=== PATIENT | female | born 1940 | race Caucasian/White ===

== ENCOUNTER 2018-04-15 11:06 | Inpatient (IN) ==
--- NOTE | 2018-04-15 11:22 | Emergency Department Note ---
Disposition Clinical Impression: Left arm weakness Disposition: Admitted As Inpatient Referrals: Al Crowley MD [Primary Care Provider] - General Adult HPI - General Stated complaint: possible stroke Time Seen by Provider: 04/15/18 11:09 Past Medical History - Past Medical History Medical history: Reports: osteoporosis Surgical history: Reports: non-contributory - Social History Smoking Status: Unknown if ever smoked Attestation Statement - Attestation Attestation: I examined this patient and my medical decision-making was reviewed with the Resident Physician. I agree with the documented findings, disposition and treatment plan as described except to the extent set forth below. 77 year old female prsnet to the ED with complaints of left arm numbness and weakness that started 0800 this morning and resolved and then started again at 0900 this morning which has now resolved. and her NIH is at a 0. Maria M states she was given 2 baby aSA per squad but otherwise does not take ASA. Maria M states that she doesnot have a histroy of afib or stroke or MIs. Maria M does have risk factors for ACS and CVa. STROKE ALERT called, HCT without bleed. She does have diffuse t wave inversion on EKG althouhg she is not expeirning chest pain or pressure or discomfort. WE will admit
[2018-04-15 11:27] LABS: Basophils % 0.3 %; Eosinophils # 0.1 K/mcL (0.0-0.6); Eosinophils % 1.1 %; Hematocrit 40.9 % (35.3-44.9); Immature Granulocytes % 0.3 % (0-4); Lymphocytes # 1.4 K/mcL (0.6-4.6); Mean Corpuscular HGB Conc 34.2 g/dL (31.6-35.5); Mean Corpuscular Hemoglobin 30.2 pg (28.0-33.3); Mean Corpuscular Volume 88.3 fL (83.0-100.0); Mean Platelet Volume 9.5 fL (9.4-12.4); Monocytes # 0.5 K/mcL (0.0-1.3); Monocytes % 8.4 %; Neutrophils # 4.1 K/mcL (1.6-8.9); Platelet Count 246 K/mcL (140-400); Red Blood Count 4.63 M/mcL (3.82-4.97); Red Cell Distribution Width 11.9 % (11.5-14.5); Segmented Neutrophils % 66.9 %
--- NOTE | 2018-04-15 11:27 | Emergency Department Note ---
Disposition Clinical Impression: Left arm weakness Disposition: Admitted As Inpatient Referrals: Al Crowley MD [Primary Care Provider] - Neuro HPI - General Stated Complaint: possible stroke Time Seen by Provider: 04/15/18 11:09 Source: patient Limitations: no limitations - History of Present Illness HPI Narrative: 69-year-old female presents from [facility] via EMS for evaluation of acute neuro deficits. Patient was awake and getting ready for [facility] at 08:00 this morning experienced abrupt onset left upper lower extremity numbness with mild weakness. This resolved after 3-4 minutes. At [facility], at 09:00, patient Stout left upper extremity numbness, changes in her vision described as imagery rolling/scanning vertically past her. She was sitting and was unable to get up due to weakness. EMS was called for transport. Based on EMS story, code stroke was called prior to patient's arrival. Patient was given 2 aspirin by family prior to EMS arrival on scene. She was also nauseous and dry heaves in route. Patient was taken from ambulance pain doors directly to CT where I started my evaluation. Currently, patient feels a symptomatic. 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 No history of herniated dysrhythmia, CVA, TIA. - Related Data Allergies/Adverse Reactions: Allergies Allergy/AdvReac Type Severity Reaction Status Date / Time Amoxicillin Allergy Rash Verified 04/15/18 11:17 All systems ED: reviewed and negative except as stated. Review of Systems: As Per HPI Past Medical History - Past Medical History Medical history: Reports: osteoporosis Surgical history: Reports: non-contributory Psychiatric history: Reports: no psych history - Social History Smoking Status: Unknown if ever smoked Alcohol use: Reports: none Drug use: Reports: none Physical Exam Vital Signs Reviewed General: Patient is alert, oriented, and in no acute distress. Head: atraumatic, normocephalic Eye: normal appearance, PERRL, EOMI, no scleral icterus, no conjunctival injection. ENT: mucous membranes moist, normal external ear exam Neck: normal inspection, trachea midline, full ROM Chest: normal inspection, symmetric chest rise Respiratory: Good respiratory effort. Bilateral breath sounds are clear without wheezing, crackles, or rhonchi. Cardiovascular: Regular rate and rhythm. No clicks, rubs, gallops, or murmors. Normal heart sounds. Abdomen: Bowel sounds present normoactive x-4 quadrants. Abdomen is soft, nondistended, and nontender. No guarding or rebound. No organomegaly noted. Musculoskeletal: Spontaneously moving all extremities. Skin: warm, dry, intact. Neuro: Alert and oriented x4. Sensation light touch intact and equal bilaterally in upper and lower extremity is. No pronator drifts. Negative finger-nose. No slurring of speech. She is answering all questions appropriately and briskly. No facial asymmetry. No visual field losses. Psych: Patient's affect is appropriate for situation. - General Limitations: no limitations General appearance: alert, in no apparent distress Course Course Narrative: 11:32 Dr. Louie Ang, [facility]. CT head noncon shows some ischemic white matter changes. Encephalomalacia in left posterior occiput from prior events. No hemorrhage. 11:35 [facility] neurologist, Dr. Mosher. Not a TPa candidate given resolution of symptoms. Recommends TPa workup. We will keep at this facility for continued evaluation. 11:45 [facility] neurology, Dr. Venegas. Discussed with him the patient's past medical history, present time light of symptoms, CT head findings. He agrees for a mission to this facility for TIA workup. Will give aspirin. Patient's EKG does show diffuse T-wave inversions that are new from EKG 6 years ago. She has had no chest pain today. Awaiting lab results and will call cardiology. EKG dated 15 April 2018 at 11:25 interpreted as sinus rhythm with rate of 78. DE 163, QRS 70, QTC 434. Normal axis. Diffuse T-wave inversion. Nonspecific ST changes. Compared to previous EKG dated 11/30/2011 which shows these T-wave inversions are new. Vital Signs Temperature 98.3 F 04/15/18 11:17 Pulse Rate 72 04/15/18 11:17 Respiratory Rate 18 04/15/18 11:17 Blood Pressure 187/105 04/15/18 11:17 O2 Sat by Pulse Oximetry 96 04/15/18 11:17 Temperature 98.3 F 07/08/18 11:17 Pulse Rate 75 04/15/18 11:25 Respiratory Rate 16 04/15/18 11:25 Blood Pressure 200/96 04/15/18 11:25 O2 Sat by Pulse Oximetry 97 04/15/18 11:28 Oxygen Delivery Oxygen Delivery Room Air Neuro Symptoms/Deficit - Lab Data Result diagrams: 04/15/18 11:14 Lab Results 04/15/18 04/15/18 Range/Units 11:14 11:14 WBC 6.2 (4.3-11.1) K/mcL RBC 4.63 (3.82-4.97) M/mcL Hgb 14.0 (11.5-15.4) g/dL Hct 40.9 (35.3-44.9) % MCV 88.3 (83.0-100.0) fL MCH 30.2 (28.0-33.3) pg MCHC 34.2 (31.6-35.5) g/dL RDW 11.9 (11.5-14.5) % Plt Count 246 (140-400) K/mcL MPV 9.5 (9.4-12.4) fL Immature Gran % 0.3 (0-4) % Seg Neutrophils % 66.9 % Lymphocytes % 23.0 % Monocytes % 8.4 % Eosinophils % 1.1 % Basophils % 0.3 % Neutrophils # 4.1 (1.6-8.9) K/mcL Lymphocytes # 1.4 (0.6-4.6) K/mcL Monocytes # 0.5 (0.0-1.3) K/mcL Eosinophils # 0.1 (0.0-0.6) K/mcL Basophils # 0.0 (0.0-0.2) K/mcL Specimen Rejected Hemolyzed NIH Stroke Scale - Level of Consciousness LOC: Alert - LOC Questions LOC Questions: Answers both correctly - LOC Commands LOC Commands: Performs both correctly - Best Gaze Best Gaze: Normal - Visual Visual: No visual loss - Facial Palsy Facial Palsy: Normal - Motor Arms Motor Arm-Left: No drift for 10 seconds Motor Arm-Right: No drift for 10 seconds - Motor Legs Motor Leg-Left: No drift for 5 seconds Motor Leg-Right: No drift for 5 seconds - Limb Ataxia Limb Ataxia: Normal, No Ataxia - Sensory Sensory: Normal - Best Language Best Language: No aphasia - Dysarthria Dysarthria: Normal - Extinction and Inattention Extinction and Inattention: Normal - NIHSS Total Score NIHSS Total Score: 0 TPA Checklist - Source Information Source: Patient - Eligibilty for IV tPA 1. LKW equal to or less than 4.5 hours be before treatment: Yes 3. Age 18 years or older: Yes - LKW: 3-4.5 hrs Add. Warnings/Precautions Patient/family understanding: The patient/family members have been counseled and understood the risk, benefit , and alternatives of treatment.
[2018-04-15 11:42] LABS: INR 1.1; Prothrombin Time 12.4 Seconds (9.4-12.1)
[2018-04-15] MEDS ORDERED: Aspirin 81 MG TAB.CHEW PO ONE (11:42)
[2018-04-15 11:44] LABS: Activated Partial Thrombo Time 31.9 Seconds (26.0-36.0)
[2018-04-15 12:12] LABS: BUN/Creatinine Ratio 14 (6-26); Blood Urea Nitrogen 11 mg/dL (8-23); Calcium 9.4 mg/dL (8.6-10.3); Carbon Dioxide 26 mEq/L (23-29); Chloride 104 mEq/L (98-107); Glucose 133 mg/dL (70-105); Osmolality,Calculated 285 (280-300); Potassium 4.2 mEq/L (3.5-5.1); Sodium 137 mEq/L (136-145); eGFR For African Americans > 60 (> 60); eGFR For Non-African Americans > 60 (> 60)
[2018-04-15] MEDS ORDERED: *HR* Labetalol 100 MG/20 ML MDV IVP ONE (12:30)
--- NOTE | 2018-04-15 16:49 | Internal Med History&Physical ---
Date of Encounter: 04/18/18 Time of Encounter: 02:30 Internal Medicine - H&P: HPI Chief complaint: left side head, upper and lower extremity weakness History of present illness: Ms. Soriano is a 77 year old female with a history of hypertension. She presented to the ED by EMS yesterday with chief complaint of left side head, upper and lower extremity weakness, paresthesia, and vertigo, dizziness, and vomiting. Past Med Surg Social Fam HX - Past Medical History Medical history: osteoporosis Additional medical history: Pagets Disease of the skull Psychiatric history: no psych history - Past Surgical History Surgical History: cholecystectomy, hysterectomy - Social History Smoking Status: Former smoker Smokeless Tobacco Status: No Alcohol use: none Drug use: none Internal Medicine - H&P: Meds Latanoprost [Xalatan] 1 drop OP HS 04/15/18 [History] Lisinopril [Zestril] 20 mg PO DAILY 04/15/18 [History] Magnesium Oxide [Mgo] 800 mg PO DAILY 04/15/18 [History] Metoprolol Succinate [Toprol Xl] 25 mg PO DAILY 04/15/18 [History] Atorvastatin [Lipitor] 80 mg PO HS #30 tablet 04/18/18 [Rx] Clopidogrel [Plavix] 75 mg PO DAILY #30 tablet 04/18/18 [Rx] 3 Allergy/AdvReac Type Severity Reaction Status Date / Time Amoxicillin Allergy Rash Verified 04/15/18 11:17 All Systems PM: A 10-system review of systems was performed and is negative for pertinent findings except as documented above in the HPI. - Constitutional Constitutional: no chills, no fever(s), no night sweats - Cardiovascular Cardiovascular ROS IM: no chest pain, no diaphoresis, no dyspnea, no lightheadedness, no palpitations, no syncope - Respiratory Respiratory: no cough, no dyspnea, no wheezing, no excessive phlegm production - Gastrointestinal Gastrointestinal: no abdominal pain, no diarrhea, no hematemesis, no hematochezia, no melena, no nausea, no vomiting - Neurological Neurological ROS: paresthesias, weakness, no confusion, no convulsions, no focal weakness, no numbness, no tingling, no tremor(s) - Constitutional Vitals: Temp Pulse Resp BP Pulse Ox 98.6 F 78 16 168/80 97 04/15/18 16:02 04/15/18 16:02 04/15/18 16:02 04/15/18 16:02 04/15/18 15:36 General appearance: Present: A&O X 3 - Head Head exam: Present: atraumatic, normocephalic - Neck Neck exam general surgery: Present: supple, trachea midline. Absent: lymphadenopathy - Respiratory Respiratory exam: Present: CTAB. Absent: accessory muscle use, rales, rhonchi, wheezes - Cardiovascular Cardiovascular exam: Present: RRR, +S1, +S2. Absent: diastolic murmur, gallop, rubs, systolic murmur - Extremities Exam Extremities exam: Present: warm, radial pulses palpable and symmetrical. Absent : calf tenderness, cyanotic, pedal edema - Neurological Exam Neurological exam: Present: CN II-XII intact, oriented X3, no focal deficits. Absent: pronater drift, facial droop, speech deficit Internal Med - H&P Results - Labs CBC & Chem 7: 04/16/18 04:33 04/16/18 04:33 - Assessment and plan (1) Left arm weakness Current Visit: Yes Status: Resolved Assessment and plan: ASSESSMENT: *TIA PLAN: -ASA -UA -Tylenol 650 mg PO q 4-6 hr PRN headache -Neuro consult (2) Age related osteoporosis Current Visit: Yes Status: Chronic Qualifiers: Presence of current pathological fracture: without current pathological fracture Qualified Code(s): M81.0 - Age-related osteoporosis without current pathological fracture (3) DVT prophylaxis Current Visit: Yes Status: Acute - Time Spent With Patient Total time spent is greater than 50% in coordination of care (as documented) at patient's floor/unit and/or counseling patient:
[2018-04-15] MEDS ORDERED: Acetaminophen 325 MG TABLET PO PRN (17:17)
[2018-04-15] MEDS ORDERED: Ondansetron 4 MG/2 ML VIAL IVP PRN (17:17)
[2018-04-15] MEDS ORDERED: *HR* HYDROcodone/Acet 5/325 mg TABLET PO PRN (17:17)
[2018-04-15] MEDS ORDERED: *HR* OxyCODONE Immed Rel 5 MG TABLET PO PRN (17:17)
[2018-04-15] MEDS ORDERED: Naloxone 0.4 MG/ML INJ IVP PRN (17:17)
[2018-04-15 20:47] LABS: Bilirubin,Urine Negative (Negative); Blood,Urine Negative (Negative); Clarity,Urine Clear (Clear); Color,Urine Yellow (Yellow); Glucose,Urine (UA) Normal (Normal); Ketones,Urine 15 mg/dL (Negative); Leukocyte Esterase,Urine Negative (Negative); Nitrite,Urine Negative (Negative); Protein,Urine Negative (Neg-Trace); Specific Gravity,Urine 1.012 (1.010-1.025); Urobilinogen,Urine Normal (Normal)
[2018-04-16 05:07] LABS: Hematocrit 37.3 % (35.3-44.9); Hemoglobin 12.6 g/dL (11.5-15.4); Mean Corpuscular HGB Conc 33.8 g/dL (31.6-35.5); Mean Corpuscular Hemoglobin 30.1 pg (28.0-33.3); Mean Platelet Volume 9.9 fL (9.4-12.4); Platelet Count 243 K/mcL (140-400); Red Blood Count 4.19 M/mcL (3.82-4.97); Red Cell Distribution Width 12.1 % (11.5-14.5)
[2018-04-16 05:16] LABS: INR 1.1; Prothrombin Time 12.5 Seconds (9.4-12.1)
[2018-04-16 05:18] LABS: Activated Partial Thrombo Time 32.7 Seconds (26.0-36.0)
[2018-04-16 05:33] LABS: Alanine Aminotransferase 22 Units/L (7-52); Albumin 3.7 g/dL (3.5-5.7); Albumin/Globulin Ratio 1.5 (1.1-2.2); Alkaline Phosphatase 76 Units/L (34-104); Aspartate Amino Transferase 15 Units/L (13-39); BUN/Creatinine Ratio 19 (6-26); Bilirubin,Total 0.6 mg/dL (0.3-1.0); Blood Urea Nitrogen 15 mg/dL (8-23); Calcium 8.9 mg/dL (8.6-10.3); Carbon Dioxide 26 mEq/L (23-29); Chloride 107 mEq/L (98-107); Globulin 2.4 g/dL (2.4-3.5); Glucose 100 mg/dL (70-105); Magnesium 2.2 mg/dL (1.6-2.6); Osmolality,Calculated 293 (280-300); Phosphorous 3.5 mg/dL (2.7-4.5); Potassium 3.9 mEq/L (3.5-5.1); Sodium 141 mEq/L (136-145); Total Protein 6.1 g/dL (6.4-8.9); eGFR For African Americans > 60 (> 60); eGFR For Non-African Americans > 60 (> 60)
--- NOTE | 2018-04-16 10:57 | Neurology - Consult Note ---
<Dustin Hammond R - Last Filed: 04/16/18 15:29> Date of Encounter: 04/16/18 Time of Encounter: 10:55 Assessment and Plan (1) Acute CVA (cerebrovascular accident) Current Visit: Yes Status: Acute MRI reveals multiple right side acute and subacute infarcts, likely embolic in nature. Recommend head and neck CTA in evaluation of embolism source. Patient should remain on plavix and aspirin. History of Present Illness HPI: Ms. Soriano is a 77 year old female with a history of hypertension. She presented to the ED by EMS yesterday with chief complaint of left side head, upper and lower extremity weakness, paresthesia, and vertigo, dizziness, and vomiting. Symptoms began yesterday at 0800, and would come and go for two and a half hours until 1030 am, when she last noticed the symptoms. Today she feels back to normal, does not feel weak or dizziness, denies headache. Has been able to ambulate the halls well without support. Denies previous occurrence. Past Med Surg Social Fam HX - Past Medical History Medical history: osteoporosis Additional medical history: Pagets Disease of the skull Psychiatric history: no psych history - Past Surgical History Surgical History: cholecystectomy, hysterectomy - Social History Smoking Status: Former smoker Smokeless Tobacco Status: No Alcohol use: none Drug use: none Medications and Allergies Latanoprost [Xalatan] 1 drop OP HS 04/15/18 [History] Lisinopril [Zestril] 20 mg PO DAILY 04/15/18 [History] Magnesium Oxide [Mgo] 800 mg PO DAILY 04/15/18 [History] Metoprolol Succinate [Toprol Xl] 25 mg PO DAILY 04/15/18 [History] 3 Allergy/AdvReac Type Severity Reaction Status Date / Time Amoxicillin Allergy Rash Verified 04/15/18 11:17 All Systems: The remainder of the systems were reviewed and are negative Review of Systems: Decreased hearing in the left ear, chronic and at baseline Physical Examination - Vital Signs Vital Signs: Initial Vital Signs Temp Pulse Resp BP Pulse Ox 98.3 F 72 18 187/105 96 04/15/18 11:17 04/15/18 11:17 04/15/18 11:17 04/15/18 11:17 04/15/18 11:17 - Exam Exam: Mental Status: patient is awake, alert and oriented to person, place, and time. Speech and fund of knowledge are appropriate. Cranial Nerves: CN II-XII intact bilaterally, pupils equal, round, and reactive to light. Patient has known left sided hearing loss. Upper extremity motor: normal tone and 5/5 strength in bilateral deltoid, biceps , triceps, finger extensors and abductors Lower extremity motor: normal muscle tone 5/5 strength in hip flexors, quadriceps, hamstrings, plantar flexors and extensors Sensory: sensation to light touch and pain intact in bilateral upper and lower extremities Cerebellar: Rapid alternating movements, finger nose, and heel driscoll are normal without dysmetria or ataxia. Reflexes: 2+ biceps, brachioradialis, triceps, patellar, and achilles. Babinski negative. Results - Laboratory Findings CBC and BMP: 04/16/18 04:33 04/16/18 04:33 Abnormal lab findings: Abnormal lab results PT 12.5 Seconds (9.4-12.1) H 04/16/18 04:33 POC Glucose 115 mg/dL (70-99) H 04/15/18 16:59 Serum Total Protein 6.1 g/dL (6.4-8.9) L 04/16/18 04:33 LDL Cholesterol, Calc 103 mg/dL (0-99) H 04/15/18 17:34 Urine Ketones 15 mg/dL (Negative) H 04/15/18 19:00 Consult Discharge Plan - Plan Referrals: Al Crowley MD [Primary Care Provider] - <Qiana Venegas I - Last Filed: 04/16/18 16:10> Date of Encounter: 04/16/18 Assessment and Plan (1) Left arm weakness Current Visit: Yes Status: Acute Pt was seen and examined, my medical decision was reviewed with the Resident Physician, I agree with the documented findings, disposition and treatment plas as described except to the extent set forth below Patient was been admitted with these fluctuating weakness of the left upper and lower extremity without any focal motor weakness on current neurological examination certainly stroke is a major concern currently she is on an aspirin I suggested to add Plavix to it. CT scan of the head was negative MRI of the brain was reviewed shows some multiple small lacunar infarct in the right hemisphere predominantly in the MCA and some in the [employer] distribution Embolic source is a major concern she is getting completed stroke workup I would suggest getting a CT angiogram of the head and neck especially to look for any carotid stenosis on the right and also for any intracranial stenosis. Currently she is on aspirin and Plavix was added continue along with the statin. She did not have much significant weakness from the stroke but this too would benefit from physical therapy evaluation. Also need echocardiogram to look for embolic source and at the same time continue to monitor for any cardiac arrhythmias. Patient condition and results were discussed with the primary team Qiana Venegas MD (2) Acute CVA (cerebrovascular accident) Current Visit: Yes Status: Acute History of Present Illness HPI: Ms. Soriano is a 77 year old female All Systems: The remainder of the systems were reviewed and are negative Physical Examination - Vital Signs Vital Signs: Initial Vital Signs Temp Pulse Resp BP Pulse Ox 98.3 F 72 18 187/105 96 04/15/18 11:17 04/15/18 11:17 04/15/18 11:17 04/15/18 11:17 04/15/18 11:17 Results - Laboratory Findings CBC and BMP: 04/16/18 04:33 04/16/18 04:33 Abnormal lab findings: Abnormal lab results PT 12.5 Seconds (9.4-12.1) H 04/16/18 04:33 POC Glucose 111 mg/dL (70-99) H 04/16/18 07:23 Serum Total Protein 6.1 g/dL (6.4-8.9) L 04/16/18 04:33 LDL Cholesterol, Calc 103 mg/dL (0-99) H 04/15/18 17:34 Urine Ketones 15 mg/dL (Negative) H 04/15/18 19:00
[2018-04-16] MEDS: Metoprolol XL (24 HR) Succ 25 MG TAB.ER.24H PO SCH (11:54)
[2018-04-16] MEDS: Magnesium Oxide 400 MG TABLET PO SCH (11:54)
[2018-04-16] MEDS: Aspirin Enteric Coated 81 MG Tablet PO SCH (11:55)
--- NOTE | 2018-04-16 11:57 | Cardiology Consult Note ---
Date of Encounter: 04/16/18 Time of Encounter: 11:52 Assessment and Plan (1) Elevated troponin Current Visit: Yes Status: Acute Likely related to her CVA if confirmed on MRI of the brain. Less likely an ischemic event. EKG with LVH and repol less likely ischemic changes which both may be related to her CVA. ECHO for SHD as an inpatient and OP stress test when stable. Discussion w patient/family: The assessment and plan as outlined above was discussed with the patient and/or family members who expressed understanding and agreement. All questions were answered. Thank you for involving us in the care of your patient. Please call with any questions. History of Present Illness Consult date: 04/16/18 Consult reason: Elevated trops Chief complaint: Weakness History of present illness: Ms. Soriano is a 77 year old female no significant CRF's or cardiac hx presents with weakness currently improved with brain MRI pending. CT head was unremarkable. Peak trop .04 after 2 negative trops. Patient denies any chest pain now or in last few months. She also denies any RUSH and is active without any limitations to her ADL. EKG with anterolateral T wave inversions likely related to her stroke Vs LVH. Last baseline EKG 2011. Since there is an association of CVA with underlying CAD an ECHO is reasonable to evaluate for SHD. Trops also can be a result of her CVA. Brain MRI pending will not pursue any ischemic work up at this time if confirmed CVA. Likely would benefit from OP ischemic work up. ECHO howevere prior to DC Past Med Surg Social Fam HX - Past Medical History Medical history: osteoporosis Additional medical history: Pagets Disease of the skull Psychiatric history: no psych history - Past Surgical History Surgical History: cholecystectomy, hysterectomy - Social History Smoking Status: Former smoker Smokeless Tobacco Status: No Alcohol use: none Drug use: none Medications and Allergies Latanoprost [Xalatan] 1 drop OP HS 04/15/18 [History] Lisinopril [Zestril] 20 mg PO DAILY 04/15/18 [History] Magnesium Oxide [Mgo] 800 mg PO DAILY 04/15/18 [History] Metoprolol Succinate [Toprol Xl] 25 mg PO DAILY 04/15/18 [History] 3 Allergy/AdvReac Type Severity Reaction Status Date / Time Amoxicillin Allergy Rash Verified 04/15/18 11:17 All Systems Review: The remainder of the systems were reviewed and are negative Physical Examination Vital Signs, Last 4 Hours Temp Pulse Resp BP Pulse Ox 04/16/18 10:29 97.9 F 66 16 140/82 99 04/16/18 08:00 95 General: Conversant, No Apparent Distress HEENT: Atraumatic, Normocephaly, Mucus Membranes Moist Neck: No JVD, Normal carotid pulses Cardiac: Reg Rate and Rhythm, Normal S1 and S2, No Murmur Lungs: Normal Breath Sounds, No Wheeze, Rales, Rhonchi Neuro: Alert and responsive, No focal deficits noted Abdomen: Soft, Non-Tender Skin: No rashes noted on visualized skin Musculoskeletal: No Chest Wall Tenderness Extremities: No Clubbing, No Cyanosis, No Edema, Normal Pulses Results 04/16/18 04:33 04/16/18 04:33 Lab Results 04/15/18 04/15/18 04/16/18 17:34 23:05 04:33 WBC 5.7 Hgb 12.6 Hct 37.3 Plt Count 243 INR APTT Sodium Potassium Chloride Carbon Dioxide BUN Creatinine Glucose Calcium Magnesium Total Bilirubin AST ALT Alkaline Phosphatase Troponin I 0.03 0.04 H* 04/16/18 04/16/18 04/16/18 04:33 04:33 04:33 WBC Hgb Hct Plt Count INR 1.1 APTT 32.7 Sodium 141 Potassium 3.9 Chloride 107 Carbon Dioxide 26 BUN 15 Creatinine 0.78 Glucose 100 Calcium 8.9 Magnesium 2.2 Total Bilirubin 0.6 AST 15 ALT 22 Alkaline Phosphatase 76 Troponin I 0.03 Consult Discharge Plan - Plan Referrals: Al Crowley MD [Primary Care Provider] -
[2018-04-16] MEDS ORDERED: Isovue-370 500 ML INFUS..BTL IV ONE (13:14)
--- NOTE | 2018-04-16 13:36 | Internal Med Progress Note ---
Date of Encounter: 04/16/18 Time of Encounter: 13:32 - Assessment and plan (1) Acute CVA (cerebrovascular accident) Current Visit: Yes Status: Acute Assessment and plan: Patient has radiological studies including an MRI which are positive for acute right sided cerebrovascular event both in the pre-and the postcentral gyrus as well as right occipital lobe. Patient clinically is doing significantly better as compared to yesterday. She is able to ablate without any problems and does not have any residual weakness. I will discuss her case extensively with neurology and ordered a CT angiogram of her head and neck. I will also review the telemetry and so far there have been no alarms for atrial fibrillation. I will continued her aspirin 81 mg and added Plavix 75 mg to it. I will also start her on atorvastatin [address] angiogram as well as echocardiogram are pending. (2) Left arm weakness Current Visit: Yes Status: Acute Assessment and plan: See plan above (3) Age related osteoporosis Current Visit: Yes Status: Acute Qualifiers: Presence of current pathological fracture: without current pathological fracture Qualified Code(s): M81.0 - Age-related osteoporosis without current pathological fracture (4) DVT prophylaxis Current Visit: Yes Status: Acute Assessment and plan: Continue subcutaneous Lovenox - Time Spent With Patient Total time spent is greater than 50% in coordination of care (as documented) at patient's floor/unit and/or counseling patient: Greater than 35 minutes (Plan of care discussed with family and nursing at the bedside and neurology over the phone) - Subjective Interval history: Patient seems to be doing clinically much better she denies any new headaches, vision changes, tingling or numbness or weakness at this point. She was ambulating in the hallway by herself and has been clinically doing better. - Constitutional Vitals: Temp Pulse Resp BP Pulse Ox 97.9 F 66 16 140/82 99 04/16/18 10:29 04/16/18 10:29 04/16/18 10:29 04/16/18 10:29 04/16/18 10:29 General appearance: Present: A&O X 3 Exam: GENERAL: Alert, no distress, cooperative EYES: PERRLA, EOMI EARS: External ears normal, canals clear OROPHARYNX: Lips, mucosa, and tongue normal. Teeth and gums normal. Oropharynx normal. NECK: No jugulovenous distention, No carotid bruits, Carotid pulse normal contour, Supple LUNGS: Lungs clear to auscultation, Good diaphragmatic excursion CARDIAC: Normal S1 and S2; no rubs, murmurs, or gallops ABDOMEN: Abdomen soft, non-tender, BS normal, No masses or organomegaly EXTREMITIES: Extremities normal, no deformities, edema, clubbing or skin discoloration. Good capillary refill., No ulcers NEURO: Gait normal. Reflexes normal and symmetric. Sensation grossly intact, Cranial nerves II-XII intact Internal Medicine: Result - Labs CBC & Chem 7: 04/16/18 04:33 04/16/18 04:33 Labs: Short CBC 04/16/18 Range/Units 04:33 WBC 5.7 (4.3-11.1) K/mcL Hgb 12.6 (11.5-15.4) g/dL Hct 37.3 (35.3-44.9) % Plt Count 243 (140-400) K/mcL BMP 04/16/18 04:33 Sodium 141 Potassium 3.9 Chloride 107 Carbon Dioxide 26 BUN 15 Creatinine 0.78 Glucose 100 Calcium 8.9 Cardiac Enzymes 04/15/18 04/15/18 04/16/18 Range/Units 17:34 23:05 04:33 Troponin I 0.03 0.04 H* 0.03 (< 0.04) ng/mL Liver Function 04/16/18 Range/Units 04:33 Total Bilirubin 0.6 (0.3-1.0) mg/dL AST 15 (13-39) Units/L ALT 22 (7-52) Units/L Alkaline Phosphatase 76 (34-104) Units/L Albumin 3.7 (3.5-5.7) g/dL Urine 04/15/18 Range/Units 19:00 Urine Color Yellow (Yellow) Urine Clarity Clear (Clear) Urine pH 6.0 (5.0-8.0) pH Units Ur Specific [place] 1.012 (1.010-1.025) Urine Protein Negative (Neg-Trace) mg/dL Urine Glucose (UA) Normal (Normal) mg/dL - ABG Interpretation ABG results: PT/INR, D-dimer PT 12.5 Seconds (9.4-12.1) H 04/16/18 04:33 - Impressions Impressions Brain MRI 04/16/18 08:05 IMPRESSION: 1. Multiple acute cortical and subcortical infarcts involving the right pre and postcentral gyri as well as the right occipital lobe ranging in size from 3 mm to 10 mm. 2. No acute intracranial hemorrhage. 3. Remote left occipital infarct. 4. Moderate chronic small vessel ischemic changes. D/ / 04/16/2018 12:00:17 Con Baldwin MD / [facility] Interpreting Provider: Con Baldwin MD - Diagnostic Studies MRI - head Additional comments: Multiple acute to subacute areas of infarct in the right hemisphere as well as right occipital lobe. Consult Discharge Plan - Plan Referrals: Al Crowley MD [Primary Care Provider] -
--- NOTE | 2018-04-16 18:59 | Electrocardiograph Report ---
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
[2018-04-17] MEDS: Lisinopril 20 MG TABLET PO SCH (09:43)
[2018-04-17] MEDS: Aspirin Enteric Coated 81 MG Tablet PO SCH (09:43)
[2018-04-17] MEDS: Metoprolol XL (24 HR) Succ 25 MG TAB.ER.24H PO SCH (09:43)
[2018-04-17] MEDS: *HR* Enoxaparin 40 MG/0.4 ML SYRINGE SQ SCH (09:43)
[2018-04-17] MEDS: Magnesium Oxide 400 MG TABLET PO SCH (09:43)
--- NOTE | 2018-04-17 13:09 | Internal Med Progress Note ---
Date of Encounter: 04/17/18 Time of Encounter: 13:07 - Assessment and plan (1) Acute CVA (cerebrovascular accident) Current Visit: Yes Status: Acute Assessment and plan: Patient has radiological studies including an MRI which are positive for acute right sided cerebrovascular event both in the pre-and the postcentral gyrus as well as right occipital lobe. Patient clinically is doing significantly better as compared to yesterday. She is able to ablate without any problems and does not have any residual weakness. I will discuss her case extensively with neurology and ordered a CT angiogram of her head and neck. I will also review the telemetry and so far there have been no alarms for atrial fibrillation. I will continued her aspirin 81 mg and added Plavix 75 mg to it. I will also start her on atorvastatin [address] angiogram as well as echocardiogram are pending. 04/17-CTA of the head and neck is checked and completed. Discussed findings with neurology. There is multifocal narrowing at various segments of both left and right intracranial vasculature. We will continue aspirin and Plavix at this point which seems to be the most appropriate route. The patient does have underlying Paget's disease which could be contributing to her findings. This does put her at a continued risk for having further strokes and the only additional input down the line if she should have more TIAs or strokes would be addition of anticoagulation agent. The patient still has a pending echocardiogram which still needs to be completed before I can discharge her. I will review those findings and if needed discharge the patient tomorrow with aspirin and Plavix in addition to a statin. These findings were discussed with the patient and her in detail and will also be corresponded to her outpatient physician (2) Left arm weakness Current Visit: Yes Status: Acute Assessment and plan: See plan above (3) Age related osteoporosis Current Visit: Yes Status: Acute Qualifiers: Presence of current pathological fracture: without current pathological fracture Qualified Code(s): M81.0 - Age-related osteoporosis without current pathological fracture (4) DVT prophylaxis Current Visit: Yes Status: Acute Assessment and plan: Continue subcutaneous Lovenox - Time Spent With Patient Total time spent is greater than 50% in coordination of care (as documented) at patient's floor/unit and/or counseling patient: 25 - 35 minutes - Subjective Interval history: Neither new symptoms overnight denies any new tingling or numbness or headaches.. - Constitutional Vitals: Temp Pulse Resp BP Pulse Ox 98.4 F 79 16 162/73 96 04/17/18 08:10 04/17/18 08:10 04/17/18 08:10 04/17/18 08:10 04/17/18 08:10 General appearance: Present: A&O X 3 Exam: GENERAL: Alert, no distress, cooperative EYES: PERRLA, EOMI EARS: External ears normal, canals clear OROPHARYNX: Lips, mucosa, and tongue normal. Teeth and gums normal. Oropharynx normal. NECK: No jugulovenous distention, No carotid bruits, Carotid pulse normal contour, Supple LUNGS: Lungs clear to auscultation, Good diaphragmatic excursion CARDIAC: Normal S1 and S2; no rubs, murmurs, or gallops ABDOMEN: Abdomen soft, non-tender, BS normal, No masses or organomegaly EXTREMITIES: Extremities normal, no deformities, edema, clubbing or skin discoloration. Good capillary refill., No ulcers NEURO: Gait normal. Reflexes normal and symmetric. Sensation grossly intact, Cranial nerves II-XII intact PULSES: 2+ radial, 2+ carotid Rest of the exam is non contributory Internal Medicine: Result - Labs CBC & Chem 7: 04/16/18 04:33 04/16/18 04:33 - ABG Interpretation ABG results: PT/INR, D-dimer PT 12.5 Seconds (9.4-12.1) H 04/16/18 04:33 Consult Discharge Plan - Plan Referrals: Al Crowley MD [Primary Care Provider] -
--- NOTE | 2018-04-17 17:40 | Neurology Progress Note ---
Date of Encounter: 04/17/18 Time of Encounter: 15:37 Assessment and Plan (1) Acute CVA (cerebrovascular accident) Current Visit: Yes Status: Acute This patient who has right hemispheric infarct without any significant focal motor weakness on examination noted to have significant intracranial stenosis and multiple large and a small vessels throughout the brain most likely the reason for her acute infarct. There is no evidence of any critical stenosis in her carotid and at the same time echo has been negative for any embolic source. She did not have any atrial fibrillation and overall blood pressure is a stable. Considering her overall symptoms and exam findings as well as imaging studies result I would recommend hard to be on aspirin along with Plavix and statin 1 other option will be for low-dose anticoagulation due to significant intracranial stenosis to prevent any further the stroke but with her age prison afraid that she may get more side effects and the risk of bleeding complication is higher as compared to the antiplatelet therapy. I have discussed the results with the family and the patient herself she is agreeable to be on aspirin and Plavix along with the statin. Also explained to her that unfortunately there is not much other intervention possible due to the generalized and diffuse nature of for intracranial stenosis. Suggest to continue on blood pressure medication and keep it stable keep herself well hydrated as she may get some dizziness. Suggest physical therapy evaluation and she is a stable could be discharged to home with a follow-up with neurology clinic as well as the follow-up with her primary care (2) Left arm weakness Current Visit: Yes Status: Acute (3) Intracranial vascular stenosis Current Visit: Yes Status: Acute (4) Occlusion of left vertebral artery Current Visit: Yes Status: Acute Subjective Interval history: Patient seen as an follow-up clinically she is a stable she denies any other new weakness denies any difficulty with his speech able to ambulate with some help and denies any visual changes. MRI is positive for acute infarct in the right hemisphere Objective - Constitutional Vitals: Temp Pulse Resp BP Pulse Ox 97.9 F 82 16 160/77 95 04/17/18 15:09 04/17/18 15:09 04/17/18 15:09 04/17/18 15:04/17/18 15:09 - Neurological Exam Motor Examination: Present: grossly full strength in all extremities Sensation intact: Present: intact Reflex and gait examination: intact Reflexes: Biceps: 1+, Triceps: 1+, Brachioradialis: 1+, Patella: 1+, Achilles: 1 + Mental Status Examination: Present: awake, alert, oriented to person, oriented to place, oriented to time, follows commands appropriately, answers questions appropriately Cranial nerve examination: Present: PERRL, EOMI, visual saul intact, no facial asymmetry is present Results - Laboratory Findings CBC and BMP: 04/16/18 04:33 04/16/18 04:33 Abnormal lab findings: Abnormal lab results PT 12.5 Seconds (9.4-12.1) H 04/16/18 04:33 POC Glucose 134 mg/dL (70-99) H 04/16/18 15:59 Serum Total Protein 6.1 g/dL (6.4-8.9) L 04/16/18 04:33 LDL Cholesterol, Calc 103 mg/dL (0-99) H 04/15/18 17:34 Urine Ketones 15 mg/dL (Negative) H 04/15/18 19:00 - Diagnostic Findings Additional findings: CT angiogram of the head and neck shows . Cerebral parenchymal volume loss with severe chronic microvascular white matter ischemic disease. 2. No acute intracranial abnormality. 3. Multifocal sclerotic lesions are noted throughout the calvarium with expansion along the left anterior calvarium which may be related to the history of Paget's disease. If there is a primary malignancy, metastatic disease cannot entirely be excluded. 4. Multifocal areas of narrowing are noted in the supraclinoid internal carotid arteries, distal right M1 segment, posterior M2 segment of the left middle cerebral artery, distal V4 segment of the right vertebral artery, as well as the mid basilar artery. 5. The proximal P2 segment of the left posterior cerebral artery is occluded. 6. The left vertebral artery is not visualized and is likely occluded proximally. Consult Discharge Plan - Plan Referrals: Al Crowley MD [Primary Care Provider] -
[2018-04-18] MEDS: *HR* Enoxaparin 40 MG/0.4 ML SYRINGE SQ SCH (06:24)
--- NOTE | 2018-04-18 09:13 | Event Note ---
Date of Encounter: 04/18/18 Time of Encounter: 09:11 - Cardiology Event Note TTE reviewed with LVEF preserved, no segmental wall motion abnormalities. Acute CVA noted. Again per 's note, suspect ECG changes due to acute neurologic event. Cardiology will sign off and will follow in outpateint setting. Follow up set.
--- NOTE | 2018-04-18 09:16 | Electrocardiograph Report ---
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
--- NOTE | 2018-04-18 09:34 | Discharge Summary ---
<Tera Duarte S - Last Filed: 04/18/18 13:54> - NOTES TO OUTPATIENT PROVIDER Notes to Outpatient Provider: Pt came to [facility] for stroke like symptoms. She had complaints of weakness and lethargy. She needs to be followed up on for neurology - she has higher risk of strokes because of Paget's disease. Blood pressure was 179/71 this morning, should be followed on outpatient basis. Pt has no complaints of lasting weakness, word finding difficulty, numbness, or facial droop. Added plavix and artorvastatin to medication regimen. Was already on aspirin. At risk for more TIA/stroke, up to PCP if they want to add an anticoagulation. Pt to follow up with neurology regarding intracranial stenosis. Pt to follow up with cardiology regarding stress test Date of Encounter: 04/18/18 Time of Encounter: 09:15 - Discharge Diagnosis (1) Acute CVA (cerebrovascular accident) Priority: Primary Status: Resolved Assessment and Plan: MRI was positive for acute right sded CVA in pre and post central gyrus, right occipital lobe Pt is clinically improving. She has no c/o weakness, difficulty word finding, facial droop, loss of sensation or numbness. She is ambulating, tolerating diet. No lasting weakness. CT angiogram of head and neck - chronic microvascular white matter ischemic disease, no acute abnormalities or aneuyrsms. There is left [employer] occlusion, vertebral narrowing and MCA narrowing; neck CTA showed occluded left vertebral aa, stenosis of contralat vertebral aa ECHO showed LVEF 60-65% with some mild LV diastolic dysfxn. No valvular abnormalities Pt is already on aspirin, had plavix and a artorvastatin 80mg added to meds. She is at a risk of more strokes , which can be attributed to her Paget's disease. She is at risk for more TIA. Should follow up with neurology as an outpatient. Possible anticoagulation addition to regimen. Patient is stable for discharge and is encouraged to follow up with PCP Pt to follow up with neurology regarding intracranial stenosis Pt to follow up with cardiology regarding stress test (2) DVT prophylaxis Priority: Secondary Status: Acute Assessment and Plan: Pt was given SQ Lovenox (3) Left arm weakness Priority: Secondary Status: Resolved Assessment and Plan: Resolved. See plan for CVA as stated above. 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 Soriano is a 77 year old female . [facility]. SHe was having left sided numbness from her head to her toes that lasted about 5min. She was dizzy and lethargic thereafter for about 45 min. She denies any difficulty word finding, facial drooping, loss of bowel and bladder She currently denies any residual weakness, chest pain, SOB, loss of bowel or bladder, visual changes. She had CT of the brain, CTA head and CTA neck. MRI showed multiple acute cortical and subcortical infarcts invovling the right pre and post central gyri as well as the right occipital lobe ranging in size from 3 to 10mm, no acute intracranial hemorrhage, remote left occipital infarct, and moderate chronic small vessel ischemic changes NO FND, CN2-12 grossly intact on exam today She is already on ASA, had artorvastatin and plavix added to regimen Pt is encouraged to follow up outpatient with PCP. Pt to follow up with neurology regarding intracranial stenosis Pt to follow up with cardiology regarding stress test Discharge discussed with: patient, family Time spent discussing smoking cessation with patient: 3 to 10 minutes - Time Spent with Patient Total time spent providing and/or coordinating discharge services: Less than 30 minutes - Discharge Medications Prescriptions: Atorvastatin [Lipitor] 80 mg PO HS #30 tablet Clopidogrel [Plavix] 75 mg PO DAILY #30 tablet Home Medications: Latanoprost [Xalatan] 1 drop OP HS 04/15/18 [History] Lisinopril [Zestril] 20 mg PO DAILY 04/15/18 [History] Magnesium Oxide [Mgo] 800 mg PO DAILY 04/15/18 [History] Metoprolol Succinate [Toprol Xl] 25 mg PO DAILY 04/15/18 [History] Atorvastatin [Lipitor] 80 mg PO HS #30 tablet 04/18/18 [Rx] Clopidogrel [Plavix] 75 mg PO DAILY #30 tablet 04/18/18 [Rx] Allergies/Adverse Reactions: 3 Allergy/AdvReac Type Severity Reaction Status Date / Time Amoxicillin Allergy Rash Verified 04/15/18 11:17 Date of admission: 04/16/18 15:33 Primary care physician: Al Crowley MD - Constitutional Vitals: Temp Pulse Resp BP Pulse Ox 98.1 F 90 16 179/71 95 04/18/18 03:44 04/18/18 03:44 04/18/18 03:44 04/18/18 03:44 04/18/18 03:44 General appearance: Present: A&O X 1, A&O X 3 - Head Head exam: Present: normal inspection - Eye Eye exam: Present: EOMI - Neck Neck exam general surgery: Present: supple - Respiratory Respiratory exam: Present: CTAB - Cardiovascular Cardiovascular exam: Present: RRR, +S1, +S2. Absent: JVD - GI/Abdominal GI/Abdominal exam: Present: soft, no peritoneal signs - Extremities Exam Extremities exam: Present: normal capillary refill, normal inspection - Neurological Exam Neurological exam: Present: alert, CN II-XII intact, oriented X3, no focal deficits, strengths equal and symetr throughout. Absent: facial droop, speech deficit - Psychiatric Psychiatric exam: Present: normal affect, normal mood - Skin Skin exam: Present: intact - Patient Status Disposition: Home, Self-Care Condition: Good Functional capacity at discharge: independent ambulation Overall status at discharge: patient is progressing back to baseline - Discharge Instructions Instructions: How to Stop Smoking (DC), Ischemic Stroke (DC) Follow Up With: Al Crowley MD [Primary Care Provider] - (Web Request was made, the office should call patient with appointment date and time) Qiana Venegas MD [Partnered Physician] - Forms: ED Satisfaction Letter - Diet and Activity Activity: increase activity as tolerated Diet: low fat, low cholesterol, low salt diet <Stefani Elaine - Last Filed: 04/18/18 14:00> Date of Encounter: 04/18/18 - Discharge Diagnosis (1) Left arm weakness Status: Resolved (2) DVT prophylaxis Status: Acute (3) Acute CVA (cerebrovascular accident) Status: Resolved (4) Paget disease of bone Status: Chronic Hospital course: Ms. Soriano is a 77 year old female - Time Spent with Patient Total time spent providing and/or coordinating discharge services: Date of admission: 04/16/18 15:33 Primary care physician: Al Crowley MD - Constitutional Vitals: Temp Pulse Resp BP Pulse Ox 98.4 F 86 16 154/80 96 04/18/18 11:41 04/18/18 11:41 04/18/18 11:41 04/18/18 11:41 04/18/18 11:41 - Attending Attestation Patient seen and examined at the bedside with the resident team. Assessment and plan of care has been formulated after discussion with them. She has not had any more strokelike symptoms and agree with this position on aspirin and Plavix. She knows that she is not completely out of risk for future strokes given her complex vasculature due to her pedis disease and outpatient Coumadin might still be needed especially she has another strokelike event. Rest of the assessment and plan and discharge planning is as per the resident documentation.
[2018-04-18] MEDS: Metoprolol XL (24 HR) Succ 25 MG TAB.ER.24H PO SCH (09:59)
[2018-04-18] MEDS: Magnesium Oxide 400 MG TABLET PO SCH (09:59)
[2018-04-18] MEDS: Lisinopril 20 MG TABLET PO SCH (09:59)
[2018-04-18] MEDS: Aspirin Enteric Coated 81 MG Tablet PO SCH (09:59)
[2018-04-18 11:44] VITALS: BP 154/80
== END 2018-04-18 12:10 | disposition home or self-care (01) | DRG 66 ==
LOC: 3ANU 11:06 → EMEROO 11:06 → SUATTDRO 14:18 → 3ANU 15:00
PROVIDERS: ADMIT Internal Medicine; ATTEND Internal Medicine